=== PATIENT | male | born 1970 | race Caucasian/White ===

== ENCOUNTER → 2017-04-16 | Outpatient (CLI) | payer OTHER ==
[~2017-04-16] MED LIST: ASPIRIN81 M2 PO; HYDROCHLOROTHIA25 MG PO; IBUPROFEN PO; KEFLEX500 M1 PO; LISINOPRIL10 MG PO; LISINOPRIL5 MG PO; NEURONTIN PO; NEURONTIN600 MG PO; PRILOSEC PO
--- NOTE | ~2017-04-16 | US5 ---
[facility] A Service of [facility] RADIOLOGY TEXT RESULTS PATIENT: KODI BRADLEY LOCATION: [facility] : 68 UNIT #: [id number] AGE: [address]: Kelvin Prasad MD SEX: M ORDER DR: [id number] [address] [address] [id number] O MR#: [id number] Acc #: [id number] NAME: KODI BRADLEY : 1970 SEX: M STUDY DATE/TIME: 04/16/2017 9:21 UNIT: SG ROOM: STUDY DESCRIPTION: US Abdominal Complete Attending Physician: Kelvin Prasad III, M.D. Referring Physician: Kelvin Prasad III, M.D. Ordering Physician: Kailey Akhtar M.D. Primary Care Physician: Kailey Akhtar M.D. MEDICAL IMAGING REPORT This report is preliminary unless electronic signature is present. EXAM Abdominal ultrasound. INDICATIONS Hepatitis C. Observation for cirrhosis and hepatocellular carcinoma. PROCEDURE Alan-scale and Doppler imaging of the abdomen. COMPARISON Right upper quadrant ultrasound 07/21/2016. FINDINGS Visualized portions of the pancreas are unremarkable. The liver measures 17.2 cm in length. The liver has homogeneous echotexture with no liver mass seen on submitted images. Unremarkable gallbladder. Common duct is not well seen on this study, but measures approximately 2 mm in diameter. Right kidney measures 10.3 cm and is normal. Submitted images abdominal aorta and inferior vena cava unremarkable. Spleen measures 11.6 cm. Left kidney measures approximately 8.8 cm, but is not well seen on this study. No hydronephrosis. IMPRESSION 1. Portions of the left kidney are not well seen. 2. Otherwise negative abdominal ultrasound. Dictated by... Joss Atkinson M.D. THIS IS AN ELECTRONICALLY VERIFIED REPORT Joss Atkinson M.D. at 04/18/2017 7:15 AM EED/gz [facility] A Service of [facility] RADIOLOGY TEXT RESULTS PATIENT: [facility]OD[facility] BR[id number] [birth year] UNIT #: [id number] AGE: [address]: Kelvin Prasad MD SEX: M ORDER DR: TD: 04/16/2017 16:06 JOB #: [id number] MEDICAL IMAGING REPORT Page 1 of 1
== END | disposition home or self-care (01) ==
LOC: SGUS 08:21
DX: B18.2 Chronic viral hepatitis C (principal)
CPT/HCPCS: 76700